=== PATIENT | male | born 1995 | race Hispanic/Latino ===

== ENCOUNTER 2023-02-12 21:57 | Observation (INO) | payer BC, SELFPAY ==
[2023-02-12] MEDS ORDERED: Morphine 4 MG/ML VIAL ONE (22:39)
[2023-02-12 23:06] LABS: #Basophils 0.1 thou/uL (0.0-0.2); #Eosinphils 0.2 thou/uL (0.0-0.7); #Lymphocytes 2.7 thou/uL (1.20-3.40); #Monocytes 0.9 thou/uL (0.11-0.59); %Basophils 0.8 % (0.0-1.0); %Eosinophils 2.3 % (0.0-10.0); %Lymphocytes 27.7 % (21.0-51.0); %Neutrophils 60.3 % (42.0-75.0); Hemoglobin 15.6 g/dL (14.0-18.0); Mean Corpuscular HGB CONC 34.9 g/dL (32.0-36.0); Mean Corpuscular Hemoglobin 33.7 pg (27.0-31.0); Mean Corpuscular Volume 96.6 fl (78.0-98.0); Mean Platelet Volume 8.6 fL (7.4-10.4); Platelet Count 265 10x3/uL (130-400); RBC Distribution Width 11.4 % (11.5-14.5); Red Blood Cell (RBC) Count 4.64 mill/uL (4.70-6.10); White Blood Cell (WBC) Count 9.9 10x3/uL (4.8-10.8)
[2023-02-12] MEDS ORDERED: Ondansetron PF 4 MG/2 ML Vial IVP PRN (23:45)
[2023-02-12] MEDS ORDERED: Ondansetron ODT 4 MG TAB SL PRN (23:45)
[2023-02-13] MEDS ORDERED: Morphine 2 MG/ML VIAL SLOW IVP PRN (00:13)
[2023-02-13] MEDS ORDERED: HYDROcodone/Acetaminophen 5/325 mg Tablet PO PRN ×2 (00:14)
[2023-02-13] MEDS ORDERED: Acetaminophen 325 MG TAB PO PRN (00:14)
[2023-02-13] MEDS: Sodium Chloride 0.9% 1,000 ML IV SCH ×2 (00:19→08:53)
[2023-02-13 01:48] VITALS: BMI 30.8
[2023-02-13] MEDS ORDERED: CEFAZOLIN 2 GM in Sodium Chloride 0.9% 100 ML IVPB SCH (11:00)
[2023-02-13] MEDS ORDERED: Fentanyl 250 MCG/5 ML VIAL ONE (12:40)
[2023-02-13] MEDS ORDERED: Dexmedetomidine 200 MCG/2 ML VIAL ONE (12:41)
[2023-02-13] MEDS ORDERED: Midazolam HCl 2 mg/2 ml Vial ONE (12:41)
[2023-02-13] MEDS ORDERED: CEFAZOLIN 2 GM VIAL ONE (12:46)
[2023-02-13] MEDS ORDERED: Sodium Chloride 0.9% 100 ML ONE (12:46)
[2023-02-13] MEDS ORDERED: Ondansetron PF 4 MG/2 ML Vial ONE ×2 (12:56→13:10)
[2023-02-13] MEDS ORDERED: Metoclopramide HCl 10 MG/2 ML VIAL ONE (12:56)
[2023-02-13] MEDS ORDERED: PROPOFOL 200 MG/20 ML VIAL ONE (12:56)
[2023-02-13] MEDS ORDERED: Lidocaine 1% PF 5 ML VIAL ONE (12:56)
[2023-02-13] MEDS ORDERED: Bupivacaine HCl 0.5%/Epinephrine 1:200,000/PF 30 ml Vial ONE (13:23)
[2023-02-13] MEDS ORDERED: fentaNYL 50 mcg/mL 1 mL Vial ONE (14:49)
[2023-02-13] MEDS ORDERED: HYDROmorphone 0.5 MG/0.5 ML SYRINGE ONE (15:09)
[2023-02-13 19:01] VITALS: BP 122/82; TEMP 98.6
== END 2023-02-13 18:51 | disposition home or self-care (01) ==
LOC: ERS 21:57 → SURG B 22:50
PROVIDERS: ADMIT Orthopaedic Surgery; ATTEND Orthopaedic Surgery
PROC: 0QSK04Z Reposition Left Fibula with Internal Fixation Device, Open Approach (ICD-10-PCS; principal; 2023-02-13)
DX: S82.842A Displaced bimalleolar fracture of left lower leg, initial encounter for closed fracture (principal); W19.XXXA Unspecified fall, initial encounter
CPT/HCPCS: 85025; 96372; 99284; C1713; C1874; G0378; J1170; J2250; J2270; J2405; J2704; J2765; J3010; J3490; J7050